=== PATIENT | male | born 1960 | race Caucasian/White ===

== ENCOUNTER 2019-03-26 15:44 | Emergency (ER) | payer MEDICAID ==
[2019-03-26] MEDS ORDERED: Bupivacaine 0.5% 30 ML SDV INFILT ONE (15:48)
[2019-03-26 16:04] VITALS: BP 122/76; PULSE 60
[2019-03-26] MEDS ORDERED: MVI, Adult with Vitamin K 10 ML, Thiamine 100 MG, Folic Acid 1 MG, Magnesium Sulfate 3 ... IV SCH ×5 (16:15)
[2019-03-26] MEDS ORDERED: ceFAZolin 1 GM in Premix Bag 1 BAG IV ONE (16:19)
--- NOTE | 2019-03-26 16:31 | EDM.PDOC ---
ED HPI GENERAL MEDICAL PROBLEM - General Chief Complaint: Laceration Stated Complaint: LACERATION TO LEFT THUMB Time Seen by Provider: 03/26/19 16:00 Source of Information: Reports: Patient History Limitations: Reports: No Limitations - History of Present Illness INITIAL COMMENTS - FREE TEXT/NARRATIVE: 59-year-old male with an injury to his left hand. He was working with a table saw and the board slipped and he cut the distal aspect of his left thumb and left index finger. The thumb has a complete amputation of the distal thumb at a 45 degree angle distal to the IP joint, there is also a laceration on the radial aspect of the distal index finger. No other injury. Onset: Sudden Duration: Hour(s): (Within the last half hour) Location: Reports: Upper Extremity, Left Associated Symptoms: Reports: No Other Symptoms Left Hand Pain Score (Numeric/FACES): 8 - Related Data Allergies Allergy/AdvReac Type Severity Reaction Status Date / Time No Known Allergies Allergy Verified 05/15/15 18:54 Home Meds: Home Meds Escitalopram Oxalate [Lexapro] 20 tab PO DAILY 05/15/15 [History] Varenicline [Chantix] 1 mg PO ASDIRECTED PRN 03/26/19 [History] atorvaSTATin [Lipitor] 40 mg PO DAILY 03/26/19 [History] lisinopriL [Lisinopril] 5 mg PO DAILY 03/26/19 [History] Past Medical History Cardiovascular History: Reports: High Cholesterol, Hypertension Psychiatric History: Reports: Depression Social & Family History - Tobacco Use Smoking Status *Q: Light Tobacco Smoker Years of Tobacco use: 1 Packs/Tins Daily: 0.5 - Caffeine Use Caffeine Use: Reports: Coffee - Recreational Drug Use Recreational Drug Use: No ED ROS GENERAL - Review of Systems Review Of Systems: See Below Constitutional: Denies: Fever, Chills Respiratory: Denies: Shortness of Breath GI/Abdominal: Denies: Abdominal Pain Skin: Reports: Pallor, Diaphoresis Neurological: Denies: Headache ED EXAM, SKIN/RASH Exam: See Below Exam Limited By: No Limitations General Appearance: Alert, Anxious, Moderate Distress Head: Atraumatic Respiratory/Chest: No Respiratory Distress Cardiovascular: Regular Rate, Rhythm. No: Tachycardia Extremities: Other (Exam is otherwise limited to the left hand. The patient has an angulated amputation of the distal thumb distal to the IP joint. There is also a laceration to the radial aspect of the index finger distally.) Neurological: Alert, Oriented Psychiatric: Anxious Course - Vital Signs Last Recorded V/S: Last Vital Signs Temp 98 F 03/26/19 16:04 Pulse 60 03/26/19 16:04 Resp 16 03/26/19 16:04 BP 122/76 03/26/19 16:04 Pulse Ox 97 03/26/19 16:04 - Orders/Labs/Meds Orders: Active Orders 24 hr Category Date Time Status Hand Comp Min 3V Lt [CR] Stat Exams 03/26/19 15:48 Taken Meds: Medications Discontinued Medications Generic Name Dose Route Start Last Admin Trade Name Freq PRN Reason Stop Dose Admin Bupivacaine HCl 30 ml 03/26/19 15:48 03/26/19 16:06 Marcaine 0.5% INFILT 03/26/19 15:49 30 ml ONETIME ONE Administration Cefazolin Sodium/Dextrose 1 gm 50 mls @ 100 mls/hr 03/26/19 16:19 03/26/19 16 :31 / Premix IV 03/26/19 16:48 100 mls/hr ONETIME ONE Administration - Re-Assessments/Exams Free Text/Narrative Re-Assessment/Exam: 03/26/19 16:33 Alcohol was used to sterilize the surface of the digits and a 0.5% Marcaine digital block was applied to the thumb and index finger. His hand was then soaked in saline, and IV started, and the patient was given 1 g of IV Ancef. 03/26/19 17:25 X-ray confirms an amputation of the distal phalanx of the left thumb, there does not appear to be a fracture of the index finger. Additional Marcaine was applied to the thumb index finger, the wounds were cleaned thoroughly with saline and dressed with wet-to-dry dressings over the hand. Consultation was made with orthopedics in [place], patient will be transferred up there by private car and prepared for surgery. After consultation with orthopedics in [place], it was recommended we call a hand surgeon at [facility]. They will contact the patient tomorrow for an appointment time. Departure - Departure Time of Disposition: 18:49 Disposition: Home, Self-Care 01 Clinical Impression: Amputation thumb Qualifiers: Encounter type: initial encounter Laterality: left Qualified Code(s): S68.012A - Complete traumatic metacarpophalangeal amputation of left thumb, initial encounter Finger laceration Qualifiers: Encounter type: initial encounter Finger: index finger Damage to nail status: with damage Foreign body presence: without foreign body Laterality: left Qualified Code(s): S61.311A - Laceration without foreign body of left index finger with damage to nail, initial encounter - Discharge Information Instructions: Traumatic Finger Amputation Referrals: PCP,None [Primary Care Provider] - Forms: ED Department Discharge Care Plan Goals: Keep bandage on until you are called by [facility], they should have information for follow-up time with a repeat tonight or tomorrow. Use pain control as prescribed, elevation of the hand will help. Sepsis Event Note - Evaluation Sepsis Screening Result: No Definite Risk - Focused Exam Date Exam was Performed: 03/27/19 Time Exam was Performed: 10:43 - My Orders Last 24 Hours: My Active Orders 03/26/19 15:48 Hand Comp Min 3V Lt [CR] Stat - Assessment/Plan Last 24 Hours: My Active Orders 03/26/19 15:48 Hand Comp Min 3V Lt [CR] Stat
--- NOTE | 2019-03-28 07:45 | CRLCR ---
Final Report: INDICATION: Table saw thumb injury. COMPARISON: none TECHNIQUE: Two view left hand FINDINGS: There is traumatic amputation of the distal thumb with AP resection of plain through the tuft of the 1st distal phalanx. The remainder of the distal phalanx and interphalangeal joint appear intact. No abnormalities are noted within the adjacent fingers. The metacarpals and wrist appear intact. IMPRESSION: Traumatic amputation of the distal soft tissues of the thumb with transection through the tuft portion of the 1st distal phalanx. Dictated by Alexis Becerril MD @ 03/26/2019 4:49:39 PM Dictated by: Alexis Becerril MD @ 03/26/2019 16:49:49 Signed by: Alexis Becerril MD @03/26/2019 4:49:49 PM (Electronic Signature) MTDD
== END 2019-03-26 18:49 | disposition home or self-care (01) ==
LOC: JP.ED 15:44
DX: S68.012A Complete traumatic metacarpophalangeal amputation of left thumb, initial encounter (principal); S61.311A Laceration without foreign body of left index finger with damage to nail, initial encounter; F32.9 Major depressive disorder, single episode, unspecified; E78.00 Pure hypercholesterolemia, unspecified; I10 Essential (primary) hypertension; F17.210 Nicotine dependence, cigarettes, uncomplicated; Z79.899 Other long term (current) drug therapy; W31.2XXA Contact with powered woodworking and forming machines, initial encounter; Y93.89 Activity, other specified
CPT/HCPCS: 64450; 73130; 96365; 99282; J0690; J3490